=== PATIENT | female | born 2000 | race Caucasian/White ===

== ENCOUNTER 2021-01-13 14:00 | Emergency (ER) | payer OTHER ==
[2021-01-13 14:26] VITALS: BP 100/66; PULSE 79; TEMP 98.6; BMI 22.1
== END 2021-01-13 17:33 | disposition home or self-care (01) ==
LOC: JERFT 14:00
DX: M79.10 Myalgia, unspecified site (principal)
CPT/HCPCS: 73523-TC-FY; 84703; 99284-25